=== PATIENT | male | born 1970 | race African-American/Black ===

== ENCOUNTER 2017-02-01 01:28 | Emergency (ER) | payer OTHER ==
[~2017-02-01] VITALS: Ht 177.8 cm; Wt 69.5 kg
[~2017-02-01 01:28] MED LIST: FLEXERIL10 MG PO; HYDROXYZINE HCL25 MG PO; NIX 5% CREAM60 GM TP
[2017-02-01 02:13] LABS: ADD MIUA? NO; BILIRUBIN NEGATIVE; BLOOD NEGATIVE; COLOR YELLOW ((YELLOW)); GLUCOSE (STRIP) NEGATIVE; KETONES NEGATIVE; LEUKOCYTES NEGATIVE; NITRITE NEGATIVE; PROTEIN (STRIP) NEGATIVE; UCUL ADDED? NO
[2017-02-01] MEDS ORDERED: PERCOCET 5/31 TABLET PO (02:32)
[2017-02-01] MEDS ORDERED: VALIUM5 MG PO (02:32)
[2017-02-01 02:46] VITALS: BP 127/66
== END 2017-02-01 02:47 | disposition home or self-care (01) ==
LOC: EME 01:28 → EXP 01:28
PROVIDERS: Physician Assistant
DX: S39.012A Strain of muscle, fascia and tendon of lower back, initial encounter (principal); X50.1XXA Overexertion from prolonged static or awkward postures, initial encounter; F17.200 Nicotine dependence, unspecified, uncomplicated
CPT/HCPCS: 81003; 99281; 99284; J1885